=== PATIENT | female | born 1980 | race Caucasian/White ===

== ENCOUNTER 2022-02-10 16:51 | Observation (INO) | payer BC ==
[~2022-02-10] VITALS: Ht 167.6 cm; Wt 75.3 kg
[2022-02-10] VITALS (9 sets, daily range): BP systolic 100–136; BP diastolic 62–77; PULSE 51–67; TEMP 97.6–97.8
[~2022-02-10 16:51] MED LIST: COZAAR 50MG50 MG/TAB PO; HCTZ 25MG TAB25 MG PO; MOTRIN 600600 MG/TAB PO; MULTI JUNIOR W/1 TAB PO; NORCO 325 MG-51 TAB PO; NORMODYNE200 MG PO; NORVASC 5MG5 MG/TAB PO; PERCOCET 325 MG1 TA2 PO; PREDNISONE20 MG PO; PRENATAL1 TA1 PO; PROCARDIA XL 6060 MG PO; TRANDATE 200MG200 MG PO
--- NOTE | 2022-02-10 17:45 | NUR ---
Pt. arrived to the floor. Pt. is A&OX3, assessment complete. Pt. reports pain to rlq at a 7. Pt. denies need for pain meds at this time.
[2022-02-10] MEDS ORDERED: BENICAR 20MG TA20 MG PO (17:57)
[2022-02-10] MEDS ORDERED: FLEXERIL5 MG PO (17:57)
--- NOTE | 2022-02-10 19:30 | NUR ---
RECEIVED REPORT FROM DAY SHIFT RN.
--- NOTE | 2022-02-10 20:34 | NUR ---
RECEIVED REPORT FROM MARINE OPERATIONS COORDINATORIKER. WAITING ON PATIENT'S ARRIVE TO ROOM.
--- NOTE | 2022-02-10 21:08 | NUR ---
REPORTS PAIN TO ERIK UPPER CHEST/CLAVICLE AREAS "PRESSURE" DENIES SOA/NAUSEA AT THIS TIME. SEE MAR FOR PAIN MEDS GIVEN. MOTHER AT BEDSIDE.
[2022-02-11 00:21] VITALS: BP 110/59; PULSE 66; TEMP 97.7
[2022-02-11 04:32] VITALS: BP 112/95; PULSE 70; TEMP 97.7
--- NOTE | 2022-02-11 06:21 | NUR ---
REPORTS STILL HAVE SOME ABD DISCOMFORT, REQUESTED AND GIVEN FLEXERIL, REFUSING OFFER OF IV DILAUDID. SEE MAR.
--- NOTE | 2022-02-11 07:08 | NUR ---
CHANGE OF SHIFT REPORT GIVEN TO DAY SHIFT RNLIZANDRO. PATIENT VOIDED X2 DURING NIGHT AND REPORTED PASSING FLATUS THIS MORNING. DENIED PROBLEMS WITH VOIDING. INT CONTINUES TO LAC, WITH ANTIBIOTICS GIVEN ORDERED.
--- NOTE | 2022-02-11 08:00 | NUR ---
PATIENT IS A&O. VSS. REPORT PAIN IS MANAGED AT THIS TIME. ABD LAP SITES X3, NOTED UMBIL. SITE OOZING, CHANGED BANDAID. ABD IS SOFT AND NOTED BOWL SOUNDS X4 QUADS. PATIENT REPORTS SHE IS PASSING FLATUS. NO C/O N/V. LEFT AC IV TO INT. BREAKFAST TRAY ORDERED. AM MEDS GIVEN. HEAD TO TOE ASSESSMENT COMPLETE. PATIENT HOPING TO DISCHARGE HOME LATER TODAY. NO OTHER NEEDS AT THIS TIME.
[2022-02-11 08:06] VITALS: BP 131/96; PULSE 78; TEMP 97.7
--- NOTE | 2022-02-11 08:58 | NUR ---
GABRIEL met with the patient and her mother, Emiliano (ph#[phone]), to discuss discharge plan. The patient lives in [place] with her mother and her two children. She reports independence with ADLs and does not have any DME. The patient's PCP is Dr. Aki Nuñez and she receives her medications from [facility]. The patient does not have a DPOA-HC, but she was interested in obtaining a form. GABRIEL provided. The patient plans to return home with her family upon discharge. No additional needs at this time. *Discharge plan: home with family*
[2022-02-11] MEDS ORDERED: MONODOX100 PO (10:53)
[2022-02-11] MEDS ORDERED: NORCO 325 MG-51 TAB PO (10:54)
--- NOTE | 2022-02-11 11:00 | NUR ---
DR.SAVILLE GEORGE, SEE DISCHARGE ORDERS.
[2022-02-11 12:31] VITALS: BP 92/70; PULSE 84; TEMP 98.6
--- NOTE | 2022-02-11 12:55 | NUR ---
PATIENT DISCHARGING HOME VIA WC TO PERSONAL VEHICLE WITH MOTHER. GAVE DISCHARGE INSTRUCTIONS, E-SCRIPTS SENT, AND DISCUSSED F/U APT IN [place]. DC'D IV SITE AND COVERED WITH [employer]. PATIENT ALSO REQUESTING PAIN PILL BEFORE [address] DR[address] HOME, GAVE PRN NORCO PER ORDERS. PATIENT IS DRESSED, PACKED AND DISCHARGED.
--- NOTE | 2022-02-11 16:29 | NUR ---
Vivian: No jehovah's witness preference Situation: workers compensation claims adjuster stopped by room on rounds Background: Pt was getting ready to leave Assessment: Pt appreciated the stop in
== END 2022-02-11 12:55 | disposition home or self-care (01) ==
LOC: SURG 16:51
PROVIDERS: ADMIT Surgery
DX: K35.80 Unspecified acute appendicitis (principal); K66.0 Peritoneal adhesions (postprocedural) (postinfection); N83.202 Unspecified ovarian cyst, left side; N71.9 Inflammatory disease of uterus, unspecified; I10 Essential (primary) hypertension; Z79.899 Other long term (current) drug therapy
CPT/HCPCS: G0378; J1100; J1170; J1885; J2405; J2543; J2704; J2710; J3010; J7120